=== PATIENT | male | born 1985 | race Caucasian/White ===

== ENCOUNTER 2024-10-13 00:31 | Emergency (ER) | payer BC ==
[2024-10-13] MEDS: Ciprofloxacin 0.3% Ophth Soln 5 ML Bottle EYELF SCH (01:28)
== END 2024-10-13 01:33 | disposition home or self-care (01) ==
LOC: EDBD 00:31 → JD.ED 00:31
DX: H10.32 Unspecified acute conjunctivitis, left eye (principal); Z88.5 Allergy status to narcotic agent; Z79.899 Other long term (current) drug therapy
CPT/HCPCS: 99283; A9270